=== PATIENT | male | born 1935 | race Caucasian/White ===

== ENCOUNTER → 2020-06-21 | Outpatient (CLI) | payer MEDICARE | END | disposition home or self-care (01) | LOC: ROC 06-09 09:55 | PROVIDERS: ATTEND Radiology Radiation Oncology | DX: C61 Malignant neoplasm of prostate (principal); C77.5 Secondary and unspecified malignant neoplasm of intrapelvic lymph nodes | CPT/HCPCS: G0463 ==

== ENCOUNTER → 2020-07-10 | Outpatient (CLI) | payer MEDICARE | END | disposition home or self-care (01) | LOC: ROC 11:00 | PROVIDERS: ATTEND Radiology Radiation Oncology | DX: C61 Malignant neoplasm of prostate (principal); C77.5 Secondary and unspecified malignant neoplasm of intrapelvic lymph nodes | CPT/HCPCS: G0463 ==

== ENCOUNTER 2020-07-28 08:52 | Inpatient (IN) | payer MEDICARE ==
[~2020-07-28] VITALS: Ht 170.2 cm; Wt 68.2 kg
--- NOTE | 2020-07-28 09:18 | NUR ---
Pt BIB EMS from home for c/o ALOC and possible syncope. Per pt was found sitting in chair of office "altered and confused" resolved per EMS by their arrival. 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 Pt is AOx4, denies pain, speech is clear, stroke scale negative, pt is able to stand, ambulates w/ steady gait from gurney to bed. Vitals stable, no oral trauma or incontinence noted, pt is unclear of hx of CVA vs seizures. Medications reviewed, postive anticoagulants secondary to stent placment in 2004 for [place]. at bedside for assessment.
--- NOTE | 2020-07-28 10:00 | NUR ---
Pt to imaging, vitals stable, neuro unchanged, unable to void at this time.
[2020-07-28 10:19] LABS: ALBUMIN 3.3 g/dL (3.4-5.0); ANION GAP 7 mmol/L (5-15); CALCIUM 8.8 mg/dL (8.5-10.1); CHLORIDE 111 mmol/L (98-107)
[2020-07-28 10:20] LABS: BASOPHILS % (AUTO) 0 % (0-1); EOSINOPHILS % (AUTO) 1 % (1-7); LYMPHOCYTES % (AUTO) 9 % (22-44); MEAN CORPUSCULAR HEMOGLOBIN 33.8 pg (27.5-34.5); MEAN CORPUSCULAR HGB CONC 34.1 g/dL (33.2-36.2); MEAN PLATELET VOLUME 6.8 fL (7.4-10.4); MONOCYTES % (AUTO) 6 % (2-9); NEUTROPHILS % (AUTO) 83 % (42-75); PLATELET COUNT 236 x10^3/uL (130-400); RED BLOOD COUNT 3.17 x10^6/uL (4.38-5.82); RED CELL DISTRIBUTION WIDTH 13.8 % (9.4-14.8)
[2020-07-28 10:21] LABS: MD NO
[2020-07-28 10:24] LABS: ALANINE AMINOTRANSFERASE 23 U/L (12-78); ALKALINE PHOSPHATASE 91 U/L (45-117); BILIRUBIN,TOTAL 0.8 mg/dL (0.2-1.0); CREATININE 1.04 mg/dL (0.7-1.3); TOTAL PROTEIN 6.7 g/dL (6.4-8.2); TROPONIN I < 0.015 ng/mL (0.000-0.045)
--- NOTE | 2020-07-28 10:28 | NUR ---
Urine sample collected and sent to lab. vitals stable. Pt reports pain to left ribs, noticed while twisting in bed, states "it must have happened last week while I had the shaking incident in my sleep." Slight tenderness to palpation, no brusing or deformity noted, MD notified.
[2020-07-28] MEDS ORDERED: SODIUM CHLORIDE FLUSH 10ML SYR IVF ONE (10:30)
[2020-07-28] MEDS ORDERED: ATOR80TA PO (10:40)
[2020-07-28] MEDS ORDERED: CLOP75TA52 PO (10:40)
[2020-07-28] MEDS ORDERED: PARO10OR3 PO (10:41)
[2020-07-28] MEDS ORDERED: LOSA1TAB22 PO (10:41)
[2020-07-28] MEDS ORDERED: CARV25TA12 PO (10:41)
[2020-07-28] MEDS ORDERED: PANT40TA3 PO (10:41)
[2020-07-28 11:12] LABS: MICROSCOPIC NOT IND
[2020-07-28] MEDS ORDERED: ACETAMINOPHEN 325 MG TABLET ONE (11:24)
[2020-07-28] MEDS ORDERED: ACETAMINOPHEN 325 MG TABLET PO ONE (11:30)
--- NOTE | 2020-07-28 11:53 | NUR ---
at bedside, pt medicated for pain to left rib area, states improvement with rest. Ambulates to bathroom with steady gait. vitals remain normal, neuro intact and unchanged.
[2020-07-28] MEDS ORDERED: SODIUM CHLORIDE FLUSH 10ML SYR IVF PRN (12:30)
[2020-07-28] MEDS ORDERED: LORazepam 2 MG/ML, 1ML IVPush PRN (13:30)
[2020-07-28] MEDS ORDERED: ONDANSETRON 2MG/ML, 2ML IVPush PRN (13:30)
[2020-07-28] MEDS ORDERED: ONDANSETRON ODT 4 MG PO PRN (13:30)
[2020-07-28 14:19] VITALS: BP 148/72
[2020-07-28] MEDS: SODIUM CHLORIDE 0.9% 1,000 ML IV SCH (14:53)
[2020-07-28] MEDS: LACTOBACILLUS CHEW TABLET PO SCH ×2 (14:54→20:10)
[2020-07-28] MEDS: ENOXAPARIN 40 MG/0.4 ML SQ SCH (14:54)
[2020-07-28] MEDS: ACETAMINOPHEN 325 MG TABLET PO PRN ×2 (16:48→20:11)
[2020-07-28] MEDS: CARVEDILOL 25 MG TABLET PO SCH (20:12)
[2020-07-28 20:20] VITALS: BP 117/71
[2020-07-28] MEDS ORDERED: ATORVASTATIN 80 MG TABLET PO SCH (21:00)
[2020-07-29 02:03] VITALS: BP 99/50
[2020-07-29 06:04] LABS: BASOPHILS % (AUTO) 0 % (0-1); EOSINOPHILS % (AUTO) 2 % (1-7); LYMPHOCYTES % (AUTO) 19 % (22-44); MEAN CORPUSCULAR HEMOGLOBIN 34.1 pg (27.5-34.5); MEAN CORPUSCULAR HGB CONC 34.2 g/dL (33.2-36.2); MONOCYTES % (AUTO) 10 % (2-9); NEUTROPHILS % (AUTO) 69 % (42-75); PLATELET COUNT 201 x10^3/uL (130-400); RED BLOOD COUNT 2.79 x10^6/uL (4.38-5.82); RED CELL DISTRIBUTION WIDTH 13.7 % (9.4-14.8)
[2020-07-29 06:16] LABS: MD NO
[2020-07-29 06:18] LABS: ANION GAP 8 mmol/L (5-15); CHLORIDE 112 mmol/L (98-107); CREATININE 1.01 mg/dL (0.7-1.3)
[2020-07-29 06:24] VITALS: BP 126/74
[2020-07-29] MEDS: SODIUM CHLORIDE 0.9% 1,000 ML IV SCH (06:34)
[2020-07-29] MEDS ORDERED: POTASSIUM CHLORIDE 20 MEQ TAB.ER.PRT PO ONE (07:30)
[2020-07-29] MEDS: LACTOBACILLUS CHEW TABLET PO SCH (08:15)
[2020-07-29] MEDS: CARVEDILOL 25 MG TABLET PO SCH (08:15)
[2020-07-29] MEDS ORDERED: LOSARTAN 100 MG TAB PO SCH (09:00)
[2020-07-29] MEDS ORDERED: PAROXETINE 10 MG TABLET PO SCH (09:00)
[2020-07-29] MEDS ORDERED: CLOPIDOGREL 75 MG TABLET PO SCH (09:00)
[2020-07-29] MEDS ORDERED: PANTOPRAZOLE 40MG TABLET PO SCH (09:00)
[2020-07-29] MEDS ORDERED: TEMPLATE NON-FORMULARY MED. (Losartan/Hydrochlorothiazide** (Losartan-Hctz 100-25 Mg Tab PO SCH (09:00)
[2020-07-29] MEDS ORDERED: HYDROCHLOROTHIAZIDE 25 MG TABLET PO SCH (09:00)
[2020-07-29] MEDS ORDERED: LEVETIRACETAM 500 MG TABLET PO SCH (12:00)
[2020-07-29] MEDS ORDERED: LEVE500T53 PO (12:36)
[2020-07-29] MEDS ORDERED: LOSA100T2 PO (12:36)
[2020-07-29] MEDS ORDERED: ACID1TAB7 PO (12:36)
[2020-07-29 13:15] VITALS: BP 121/66
[2020-07-29] MEDS: ENOXAPARIN 40 MG/0.4 ML SQ SCH (13:30)
[2020-07-29] MEDS ORDERED: SODIUM CHLORIDE 0.9% 1,000 ML IV SCH (13:30)
== END 2020-07-29 14:39 | disposition home or self-care (01) | DRG 101 ==
LOC: ED 09:39 → EDIP 13:14 → 4WST 14:17 → DCLOUNGE 07-29 14:22
PROVIDERS: ADMIT Hospitalist; ATTEND Hospitalist
DX: G40.209 Localization-related (focal) (partial) symptomatic epilepsy and epileptic syndromes with complex partial seizures, not intractable, without status epilepticus (principal); D64.9 Anemia, unspecified; E87.6 Hypokalemia; I10 Essential (primary) hypertension; I25.10 Atherosclerotic heart disease of native coronary artery without angina pectoris; K21.9 Gastro-esophageal reflux disease without esophagitis; Z80.9 Family history of malignant neoplasm, unspecified; I25.2 Old myocardial infarction; Z85.46 Personal history of malignant neoplasm of prostate; Z86.73 Personal history of transient ischemic attack (TIA), and cerebral infarction without residual deficits; Z95.5 Presence of coronary angioplasty implant and graft; Z82.49 Family history of ischemic heart disease and other diseases of the circulatory system
CPT/HCPCS: 36415; 70450; 70551; 71045; 80048; 80053; 81003; 84484; 85025; 93005; 95819; 99285; G0378; J1650; J2060; J7030

== ENCOUNTER 2020-11-10 08:47 | Outpatient (CLI) | payer MEDICARE ==
[~2020-11-10 08:47] MED LIST: ACID1TAB7 PO; ATOR80TA PO; CARV25TA12 PO; CLOP75TA52 PO; LEVE500T53 PO; LOSA100T2 PO; LOSA1TAB22 PO; PANT40TA3 PO; PARO10OR3 PO
== END 2020-11-10 23:59 | disposition home or self-care (01) ==
LOC: ROC 08:47
PROVIDERS: ATTEND Radiology Radiation Oncology
DX: Z08 Encounter for follow-up examination after completed treatment for malignant neoplasm (principal); Z85.46 Personal history of malignant neoplasm of prostate
CPT/HCPCS: G0463

== ENCOUNTER 2020-12-29 13:22 | Emergency (ER) | payer MEDICARE ==
[~2020-12-29] VITALS: Ht 165.1 cm; Wt 70.8 kg
[2020-12-29 14:28] LABS: BASOPHILS % (AUTO) 0 % (0-1); EOSINOPHILS % (AUTO) 1 % (1-7); LYMPHOCYTES % (AUTO) 8 % (22-44); MEAN CORPUSCULAR HEMOGLOBIN 33.6 pg (27.5-34.5); MEAN CORPUSCULAR HGB CONC 33.8 g/dL (33.2-36.2); MEAN PLATELET VOLUME 6.8 fL (7.4-10.4); MONOCYTES % (AUTO) 6 % (2-9); NEUTROPHILS % (AUTO) 84 % (42-75); PLATELET COUNT 251 x10^3/uL (130-400); RED BLOOD COUNT 2.76 x10^6/uL (4.38-5.82); RED CELL DISTRIBUTION WIDTH 13.7 % (9.4-14.8)
[2020-12-29 14:58] LABS: ALANINE AMINOTRANSFERASE 20 U/L (12-78); ALBUMIN 2.9 g/dL (3.4-5.0); ANION GAP 7 mmol/L (5-15); CALCIUM 8.5 mg/dL (8.5-10.1); CHLORIDE 109 mmol/L (98-107); CREATININE 1.59 mg/dL (0.7-1.3)
[2020-12-29 15:01] LABS: ALKALINE PHOSPHATASE 80 U/L (45-117); BILIRUBIN,TOTAL 0.3 mg/dL (0.2-1.0); TOTAL PROTEIN 6.9 g/dL (6.4-8.2)
--- NOTE | 2020-12-29 15:08 | NUR ---
review engineer: Pt ambulatory to room from lobby at this time.
--- NOTE | 2020-12-29 16:26 | NUR ---
PT TOOK OF ALL MONITORS, WANT TO GO HOME. NOTIFIED
[2020-12-29 16:33] LABS: TROPONIN I < 0.015 ng/mL (0.000-0.045)
[2020-12-29 16:58] VITALS: BP 121/74
== END 2020-12-29 16:59 | disposition home or self-care (01) ==
LOC: ED 15:10
DX: R55 Syncope and collapse (principal); R60.0 Localized edema; C61 Malignant neoplasm of prostate; R94.31 Abnormal electrocardiogram [ECG] [EKG]; I10 Essential (primary) hypertension; I25.2 Old myocardial infarction; E78.00 Pure hypercholesterolemia, unspecified
CPT/HCPCS: 36415; 80053; 80177; 84484; 85025; 93005; 99285

== ENCOUNTER 2021-03-30 08:52 | Outpatient (CLI) | payer MEDICARE | END 2021-03-30 23:59 | disposition home or self-care (01) | LOC: ROC 08:52 | PROVIDERS: ATTEND Radiology Radiation Oncology | DX: Z08 Encounter for follow-up examination after completed treatment for malignant neoplasm (principal); Z85.46 Personal history of malignant neoplasm of prostate ==